=== PATIENT | female | born 1960 ===

== ENCOUNTER 2018-05-22 14:37 | Outpatient (CLI) | payer OTHER ==
[2018-05-22 15:26] LABS: MEAN CORPUSCULAR HEMOGLOBIN 27.6 pg (28.0-34.0); MONOCYTES % 6.4 % (0.0-11.0)
[2018-05-22 15:27] LABS: BASOPHILS % 0.7 (0.0-1.5); EOSINOPHILS % 2.9 % (0.0-6.8); NEUTROPHILS # 7.7 # k/uL (1.4-7.7)
[2018-05-22 15:45] LABS: eGFR (Non-African) > 60
== END 2018-05-22 14:45 ==
LOC: LAB 14:37
PROVIDERS: ATTEND Physician Assistant
DX: Z13.6 Encounter for screening for cardiovascular disorders (principal); D72.829 Elevated white blood cell count, unspecified; I10 Essential (primary) hypertension
CPT/HCPCS: 36415; 80053; 80061; 85025